=== PATIENT | female | born 1960 | race Caucasian/White ===

== ENCOUNTER 2020-07-22 14:55 | Outpatient (REF) | payer OTHER, SELFPAY ==
--- NOTE | 2020-07-22 14:20 | ENDO_PTH ---
PATIENT: Leeanne Khoury LOC: [facility] U#:[id number] AGE/SX: 60/F ROOM: RE07/22/[address]: Tabby Shahid : 1960 BED: DIS: 07/22/2020 SPEC #: [id number] RECD: 07/22/20 16:55 STATUS: ELIZABETH REQ #: [id number] KWABENA: 07/22/20 14:[address]: Tabby Shahid DEPT: Surgical Specimen RECD BY: Ellen Dozier ENTERED: 07/22/20 16:55 SP TYPE: Endo OTHR DR: None Tissues: 1 - ENDOCERVICAL BX/CURRETTE Procedures: GROSS AND MICRO LEVEL 4 Comments: [id number]
== END 2020-07-22 15:15 ==
LOC: LBN 14:55
PROVIDERS: Visit Provider Obstetrics & Gynecology Gynecology
DX: R87.612 Low grade squamous intraepithelial lesion on cytologic smear of cervix (LGSIL)
CPT/HCPCS: 88305

== ENCOUNTER 2020-08-22 00:18 | Emergency (ER) | payer OTHER, SELFPAY ==
--- NOTE | 2020-08-22 00:20 | W.ED.GENAD ---
Discharge Plan Disposition Patient Disposition: HOME Condition: Good Discharge Details Clinical Impression: Fugue Primary Care Provider: Yuliana,Local ED Provider: Dylan Torres [place] Meds and New Rx's Prescriptions: Continued omeprazole 40 mg capsule,delayed release(DR/EC) 40 mg PO DAILY RF: 0 Discharge Instructions Additional Instructions: Head CT is unremarkable. Urinalysis shows no evidence of infection. Drug screen negative. Laboratory studies normal. Unclear episode of your dreamlike state. Follow-up with primary care for reevaluation. Return to ED for recurrent symptoms, neurologic change, fever, other concerns. Referrals: [facility] [Provider Group] Medical Decision Making Patient presenting with confusional state that sounds almost fugue-like in nature. She actually describes it as being in a dream or druggee. However, she denies any drug use and denies any ingestion of substances not prepared by her. She feels completely baseline currently. She does recall being extremely upset, anxious and crying. She denies any significant psychosocial stressors other than what everyone else is going through with Covid. She is neurologically intact. Will obtain head CT and basic labs as well as drug screen. Work-up unremarkable. Drug screen negative. Head CT normal. Labs normal. Some mild dehydration otherwise nothing of significance tonight. Follow-up with primary care. Return to ED for recurrent symptoms, neurologic changes, fever. Lab Data Lab results reviewed: Yes I reviewed the patient's lab results. HPI General Mode of arrival: ambulatory. Date/Time Provider Initiated Documentation: 08/22/20 00:19. Limitations to Documentation: no limitations. Information obtained by: patient and RN notes reviewed. 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 Subsequently, called her significant other, who reports that patient did not seem to be able to finish her sentences or stay on track. Patient was upset and crying. Episode probably lasted 3 to 4 hours and resolve. She does not recall experiencing any pain, weakness, numbness, speech difficulty, visual change, gait disturbance. She denies any drug ingestion or eating or drinking anything not prepared by her. She has never had something like this happen before. She finally decided to come in for evaluation even though she now feels completely normal. Related Data Home Medications Medication Instructions Recorded Confirmed omeprazole 40 mg capsule,delayed 40 mg PO DAILY 07/21/20 08/22/20 release Allergies Allergy/AdvReac Type Severity Reaction Status Date / Time weed pollen Allergy Verified 08/22/20 00:30 dust AdvReac congestion Uncoded 08/22/20 00:30 Review of Systems Narrative: As documented in HPI otherwise negative as below. Const: no fever, chills, weakness Resp: no cough, SOB, pleuritic pain CV: no CP, diaphoresis, edema, syncope GI: no abdominal pain, nausea, vomiting, diarrhea Neuro: no headache, numbness, focal weakness PFSH Medical History Abnormal Pap smear of cervix 05/2019: LGSIL 05/2020: LGSIL. HPV negative 06/2020: Colpo ECC Surgical History Colonoscopy - IV Sedation Tonsillectomy Family History (Updated 07/22/20 @ 20:52 by Tabby Shahid MD) Mother Leukemia Father Prostate cancer Social History Smoking/Tobacco Use Status: Former Tobacco Use Smoking risk assessment performed?: Yes Alcohol Intake: current Alcohol Intake frequency: holidays/special occasions only Drug use: Never Substance use type: does not use Household members: significant other Housing: other Details: Lives and works in [facility]. In [place] 11/25 COVID Number of Children: 0 current occupation: [employer] in [employer] Do you feel safe at home: Yes Do you feel safe in your relationship?: Yes Female Reproductive History Menstrual Menopause type: natural (Age 54yo) History History 0 Para Hx # Term Pregnancies Multiple births Hx # Pregnancies Ectopic pregnancies AB induced Hx Number of Living Children AB spontaneous Exam Narrative Exam Narrative: Vitals: Afebrile with normal vitals and normal room air pulse ox. Const: WDWN female in NAD. HEENT: NC/AT. Normal facial exam. Eyes: Normal conjunctiva and sclera. PERRL and EOMI. Neck: Supple. Trachea midline. Lungs: Normal respiratory effort. Lungs are clear. Cor: RRR without murmur/gallop. Good radial pulses. GI: Soft. NT/ND. No guarding or rebound. Neuro: A+O x 3. Normal speech, mentation, gait. Cranial nerves II - XII grossly intact. No gross motor or sensory deficit. Normal neuro exam currently. Ext: No C/C/E. Skin: Warm and dry without rash.
[2020-08-22 00:23] VITALS: BP 117/80; PULSE 65; RESP 13; TEMP 36.8; O2SAT 96
[2020-08-22 00:33] VITALS: RESP 16
[2020-08-22 01:01] LABS: Abs Immature Grans 0.01 10^3/uL (0.0-0.06); Absolute Basophil Count 0.04 10^3/uL (0.0-0.2); Absolute Lymphocyte Count 2.19 10^3/uL (1.2-3.4); Absolute Monocyte Count 0.58 10^3/uL (0.1-0.8); Basophils % 0.7; Bilirubin Negative (Negative); Blood Negative (Negative); Clarity Clear (Clear); Eosinophils % 1.7; Glucose Negative (Negative); HCT 41.1 % (36.0-46.0); HGB 13.5 g/dL (11.2-15.7); Immature Grans % 0.2; Ketones Negative (Negative); Leukocyte Esterase Negative (Negative); Lymphocytes % 36.4; MCH 30.3 pg (27.0-33.0); MCHC 32.8 % (32.0-36.0); MCV 92.4 fL (80-95); MPV 10.6 fL (8.0-11.0); Monocytes % 9.6; Neutrophils % 51.4; Nitrite Negative (Negative); Nucleated RBC 0 %; Platelet Count 291 10^3/uL (130-400); RBC 4.45 10^6/uL (3.93-5.22); RDW 11.8 % (11.7-14.6); RDW-SD 39.7 fL; Specific Gravity >= 1.030 (1.005-1.025); Urobilinogen 0.2 EU/dL (Up TO 0.2); WBC 6.02 10^3/uL (4.4-10.8)
[2020-08-22 01:13] LABS: *AMPHETAMINES SCREEN URINE Negative (Negative); *BARBITURATES SCREEN URINE Negative (Negative); *BENZODIAZEPINES SCREEN URINE Negative (Negative); Cannabinoids THC Negative (Negative); Cocaine Screen,Urine Negative (Negative); METHADONE URINE SCREEN Negative (Negative); OPIATES URINE SCREEN Negative (Negative); Tricyclic Antidepressants Negative (Negative)
--- NOTE | 2020-08-22 01:20 | DI.CT_ITS ---
EXAM: CT HEAD WO CLINICAL HISTORY: altered mental status. TECHNIQUE: Imaging Protocol: Axial computed tomography images with coronal and sagittal reformatted images were created and reviewed COMPARISON: No exams were available for comparison FINDINGS: The ventricular system is normal in appearance. No evidence of acute intracranial hemorrhage, mass effect, or midline shift. The orbital structures are unremarkable. The temporal bone structures appear intact. Calvarium: Normal. Visualized Paranasal sinuses/Mastoids: Clear. IMPRESSION: Normal cranial CT. RADIATION DOSE DELIVERED: 648.16mGy.cm Total DLP 648.16mGy.cm Total DLP DATA REPOSITORY: All CT scans at this facility are submitted to the National Radiology Data Registry (NRDR) Dose Index Registry (DIR) with the [employer] (ACR). RADIATION OPTIMIZATION: All CT scans at this facility use at least one of these dose optimization te chniques: automated exposure control; mA and/or kV adjustment per patient size (includes targeted exa ms where dose is matched to clinical indication); or iterative reconstruction.
[2020-08-22 01:26] LABS: ALT 18 U/L (14-59); AST 12 U/L (15-37); Albumin 3.7 g/dL (3.4-5.0); Alkaline Phosphatase 70 U/L (46-116); Anion Gap 6.8 mmol/L (3-11); BUN 31 mg/dL (7-18); Bilirubin, Total 0.3 mg/dL (0.2-1.0); CO2 30.2 mmol/L (21.0-32.0); Calcium 8.9 mg/dL (8.5-10.1); Chloride 107 mmol/L (98-107); Glucose 100 mg/dL (74-106); Potassium 3.4 mmol/L (3.5-5.1); Sodium 144 mmol/L (136-145); TSH (W/Ref FT4) 0.94 uIU/mL (0.36-3.74); Total Protein 7.1 g/dL (6.4-8.2)
--- NOTE | 2020-08-22 01:29 | DI.VRAD_ITS ---
PROCEDURE INFORMATION: Exam: CT Head Without Contrast Exam date and time: 08/22/2020 1:19 AM Age: 60 years old Clinical indication: Altered mental status/memory loss; Confusion or disorientation TECHNIQUE: Imaging protocol: Computed tomography of the head without contrast. Radiation optimization: All CT scans at this facility use at least one of these dose optimization techniques: automated exposure control; mA and/or kV adjustment per patient size (includes targeted exams where dose is matched to clinical indication); or iterative reconstruction. COMPARISON: No relevant prior studies available. FINDINGS: Brain: Cerebral sulci show bilateral symmetry with no supratentorial mass or mass effect detected. Brainstem and cerebellum are normal in appearance. There is no evidence of acute infarct or intracranial hemorrhage. Cerebral ventricles: No midline shift or hydrocephalus. Bones/joints: The bony calvarium and skull base are intact and no fractures or other acute osseous lesions are detected. Incomplete fusion of the posterior arch of C1 is a common congenital variant. Paranasal sinuses: Paranasal sinuses are clear throughout at the levels imaged. No air-fluid levels. Mastoid air cells: Visualized mastoid air cells are normally pneumatized and well aerated. Soft tissues: Unremarkable. IMPRESSION: Unremarkable examination with no evidence of acute infarct, recent hemorrhage or hydrocephalus. No acute intracranial process is detected. Dictated and Authenticated by: Garry Kerr MD. Ordering:RAFAEL Richardson MD
== END 2020-08-22 01:49 | disposition home or self-care (01) ==
PROVIDERS: Emergency Provider Emergency Medicine
DX: R68.89 Other general symptoms and signs (principal)
CPT/HCPCS: 36415; 80053; 80307; 99284; 70450; 81003; 84443; 85025; 99282

== ENCOUNTER → 2022-03-31 02:07 | Outpatient (CLI) | payer OTHER, SELFPAY ==
--- NOTE | 2022-03-31 | DI.US_ITS ---
Exam(s) MG MAMMO SCREEN CALL BACK UNI US BREAST LT COMPLETE EXAM: MG MAMMO SCREEN CALL BACK UNI LEFT AND COMPLETE LEFT BREAST ULTRASOUND CLINICAL HISTORY: F/U ABNL MAMMO, INCONCLUSIVE MAMMO, R92.2, LUMP LT BREAST, N63.20. TECHNIQUE: Unilateral spot mammographic images obtained with 3D tomosynthesisand utilizing computer aided detection (CAD). . Complete LEFT breast Ultrasound was also performed, including all 4 quadrants, the retroareolar regio n, and the ipsilateral axilla. COMPARISON: Prior outside mammograms were reviewed. This additional imaging was performed due to findings described on a recent screening mammogram of 03/11/2022 performed in [facility] FINDINGS: DIAGNOSTIC LEFT BREAST MAMMOGRAM:The well-defined nodule persists on spot compression. Proceeded wit h ultrasound to determine if it is solid or cystic. COMPLETE LEFT BREAST ULTRASOUND: All 4 quadrants were scanned as well as the retroareolar lesion and the left axilla At the 3 o'clock position there is an 11 by 6 millimeters cyst corresponding to the finding on the ma mmogram. This is a simple cyst with no mural nodularity nor evidence of hemorrhagic content. Increa sed through transmission. No worrisome decreased through transmission. There are no other focal ultrasound findings in all 4 quadrants. Scanning of the left axilla is negative for significant adenopathy. IMPRESSION: 1. There is a an 11 x 6 millimeter cyst at the relatively central 3 o'clock position of the left ara st, this correspond to the finding on the mammogram. There is no evidence of malignancy. 2. Appropriate follow-up is keep this patient yearly mammogram schedule, with earlier imaging if a se lf detected breast change is noted. Recommend repeat ultrasound examination at the time for next yea rly mammogram, earlier if clinically indicated. The patient was informed of these findings and recommendations by myself today. BI-RADS Category 2 - Benign Findings Breast Density - Category C - Heterogeneously dense Breast density Category C or D implies that the patient has dense breast tissue. Dense breast tissue can make it harder to find cancer on a mammogram. Dense breast tissue is also associated with an incr eased risk of breast cancer. This information about the result of the mammogram report was provided to the patient to raise their awareness. Use this report when you speak with the patient about their risks for breast cancer, which includes their family history. At that time, you may recommend additional screening tests (Ultrasoun d or MRI) as these tests may add significant information. A negative radiographic report should not delay biopsy if a dominant or clinically suspicious mass is present. Up to ten percent of cancers are not identified on mammography. A negative report may reinforce clinical impression. Adenosis and dense breasts may obscure an underlying neoplasm. False positive reports average 6 to 10%. Patient will receive a letter notifying them of these results.
== END ==
DX: Z12.31 Encounter for screening mammogram for malignant neoplasm of breast (principal); R92.8 Other abnormal and inconclusive findings on diagnostic imaging of breast; N60.02 Solitary cyst of left breast
CPT/HCPCS: 76642; 77063; 77067

== ENCOUNTER 2025-05-28 14:25 | Emergency (ER) | payer OTHER, SELFPAY ==
[2025-05-28 14:38] VITALS: BP 116/82; PULSE 79; RESP 18; TEMP 36.6; O2SAT 94
--- NOTE | 2025-05-28 16:35 | DI.RAD_ITS ---
Exam(s) XR HAND LT COMPLETE EXAM: XR HAND LT COMPLETE CLINICAL HISTORY: Index finger laceration, R/O FB. TECHNIQUE: 2D digital imaging was performed. COMPARISON: No exams were available for comparison FINDINGS: 3 views No fractures evident. No osseous lesions nor erosions. No radiopaque foreign bodies. There is no gas in the soft tissues. IMPRESSION: No significant radiographic findings. DATA REPOSITORY: RADIATION DOSE DELIVERED:
[2025-05-28 17:47] VITALS: BP 114/90; PULSE 60; RESP 14; O2SAT 98
--- NOTE | 2025-05-28 17:51 | W.ED.GENAD ---
Discharge Plan Disposition Patient Disposition: Home Condition: Stable Discharge Details Clinical Impression: Laceration of left index finger Primary Care Provider: Yuliana,Local ED Provider: Faith Mar Home Meds and New Rx's Prescriptions: New cephalexin 500 mg tablet 500 mg PO BID 7 Days Qty: 14 0RF Rx Instructions: Take 1 tablet by mouth twice daily for the next 7 days No Action omeprazole 40 mg capsule,delayed release(DR/EC) 40 mg PO DAILY mesalamine 1.2 gram tablet,delayed release (DR/EC) 1.2 g PO DAILY Patient Comments: TAKE FOUR TABLETS BY MOUTH EVERY DAY budesonide 9 mg tablet,delayed and ext.release 9 mg PO DAILY Patient Comments: TAKE ONE TABLET BY MOUTH EVERY DAY IN THE MORNING escitalopram oxalate 10 mg tablet 10 mg PO DAILY Patient Comments: TAKE ONE TABLET BY MOUTH EVERY DAY Discharge Instructions Instructions: Laceration Repair With Stitches ED Additional Instructions: The laceration was repaired with 5 simple interrupted sutures today. Please have these removed in 7 to 10 days. You may go to urgent care or return here to the emergency department what ever is more convenient for you. Leave alone for the first 12 to 24 hours after 24 hours you may wash under running soap and water. Allow to air dry at least 2 hours a day. Keep clean and dry. Keep it covered when out and about. Try not to fully flex or bend your finger. You may ice and elevate and take Tylenol after the numbing medicine wears off in approximately 3 to 6 hours. Return to the ER or be seen immediately for any signs of infection including increased red streaks, swelling drainage or increased pain. Follow up with primary care provider in 3-5 days. Return to ED sooner if any worsening or concerns. Please take Tylenol with food every 4-6 hours as needed for pain and swelling. Thank you for allowing us to care for you today. HPI General Mode of arrival: ambulatory. Date/Time Provider Initiated Documentation: 05/28/25 15:01. Limitations to Documentation: no limitations. Information obtained by: patient, RN notes reviewed and old records reviewed. HPI Narrative: At approximately 1:30 PM this afternoon prior to arrival patient was using a organ grinder and her finger slipped causing a laceration to her left index finger. Has full range of motion, distal sensation intact. Bleeding is controlled upon initial presentation. Patient is left-hand dominant, unsure when last tetanus vaccination was. Related Data Home Medications ?Medication ?Instructions ?Recorded ?Confirmed omeprazole 40 mg capsule,delayed 40 mg PO DAILY 07/21/20 05/28/25 release budesonide 9 mg tablet,delayed and 9 mg PO DAILY 05/28/25 05/28/25 extended release cephalexin 500 mg tablet 500 mg PO BID Laceration 7 days 05/28/25 #14 tabs escitalopram oxalate 10 mg tablet 10 mg PO DAILY 05/28/25 05/28/25 mesalamine 1.2 gram tablet,delayed 1.2 g PO DAILY 05/28/25 05/28/25 release Previous Rx's ?Medication ?Instructions ?Recorded cephalexin 500 mg tablet 500 mg PO BID Laceration 7 days 05/28/25 #14 tabs Allergies Allergy/AdvReac Type Severity Reaction Status Date / Time weed pollen AdvReac Intermediate Other (See Verified 05/28/25 14:42 Comment) dust AdvReac congestion Uncoded 05/28/25 14:42 General Stated Complaint: Laceration TRINH: 4 Review of Systems Musculoskeletal Musculoskeletal: Reports as per HPI Integumentary/Breasts Skin/Breast: Reports wounds (Laceration left index finger) Exam Extrem Left upper extremity: hand Details: laceration 2nd digit ulnar aspect mid Details: stellate, flap, contaminated, involving subcutaneous tissue, with motor nerve function intact and with sensation intact; not actively bleeding and no pulsatile bleeding Hand/finger images:  1. Stellate type contaminated laceration noted to the ulnar aspect of her left index finger. Bleeding controlled. Course Vital Signs Vital signs: Vital Signs Temperature 36.6 C 05/28/25 14:38 Pulse 79 05/28/25 14:38 Respiratory Rate 18 05/28/25 14:38 Blood Pressure 116/82 05/28/25 14:38 Pulse Oximetry 94 05/28/25 14:38 Temperature 36.6 C 05/28/25 14:38 Pulse 79 05/28/25 14:38 Respiratory Rate 18 05/28/25 14:38 Blood Pressure 116/82 05/28/25 14:38 Pulse Oximetry 94 05/28/25 14:38 Oxygen Delivery Method Room Air 05/28/25 14:38 Oxygen Flow Rate 0 05/28/25 14:38 Procedure Laceration Laceration 1: Date of Procedure: 05/28/25 Time of procedure: 19:06 Provider that performed the procedure: Faith Mar Standard Time Out Performed: Yes Patient Consented: Verbally Site: hand Side (If applicable): left Description: stellate and contaminated Depth: simple, single layer Local anesthetic: Lidocaine 2% and Bupivicaine 0.5% Pre-repair:: wound explored, irrigated extensively and deep structures intact Skin layer closed with: nylon Suture size: 4-0 Number of sutures:: 5 Technique: simple, interrupted Complications: None Procedure Description/Note: Laceration cleaned with sterile normal saline and chlorhexidine, patient tolerated well, number five 4.0 Ethilon sutures simple interrupted placed, wound well-approximated. Will place patient on antibiotics for laceration on the MCP joint Nerve Block 1st Nerve Block: Date of Procedure: 05/28/25 Time of procedure: 18:45 Provider that performed the procedure: Faith Mar Indication: Anesthesia, Local pain control and Procedural Standard Time Out Performed: Yes Patient Consented: Verbally Local Anesthetic: Lidocaine 2% and Bupivicaine 0.5% Amount of anethetic used(mL): 4 Sterility: Non Sterile Laterality: Left Nerve Blocks: digital (4 sided ring block) Ultrasound: Not used. Paresthesia: Left (Index finger) Paresthesia Duration: Persistent Post Procedure Pain Score (0-10): 0 Procedure Tolerated: No Complications and Patient tolerated well Procedure Outcome: Successful Medical Decision Making At approximately 1:30 PM this afternoon prior to arrival patient was using a organ grinder and her finger slipped causing a laceration to her left index finger. Has full range of motion, distal sensation intact. Bleeding is controlled upon initial presentation. Patient is left-hand dominant, unsure when last tetanus vaccination was. Imaging ordered to rule out foreign body or fracture, Tdap booster ordered. Patient has a star-shaped laceration approximately 1-1/2 cm to the medial aspect of her left index finger. Bleeding controlled. Intact range of motion and distal sensation intact. See procedure note. Digital block performed, anesthesia achieved. Discussed home care with patient strict return instructions and follow-up tablets per status post instructed to have sutures removed in approximately 7 to 10 days. Patient placed on cephalexin as the laceration is over her MCP joint. This text was generated using [employer] system, please disregard any oddities of phrase or misspellings. Imaging Data Radiologic Study: Imaging: X-Ray Radiologist's impression: CLINICAL HISTORY: Index finger laceration, R/O FB. TECHNIQUE: 2D digital imaging was performed. COMPARISON: No exams were available for comparison FINDINGS: 3 views No fractures evident. No osseous lesions nor erosions. No radiopaque foreign bodies. There is no gas in the soft tissues. IMPRESSION: No significant radiographic findings. PFSH All Active Problems (Updated 05/28/25 @ 19:08 by Faith Mar NP) Laceration of left index finger (Acute) History of colposcopy (Acute) 07/22/2020 Abnormal Pap smear of cervix (Acute) 05/2019: LGSIL 05/2020: LGSIL. HPV negative 06/2020: Colpo ECC Ulcerative colitis (Chronic) Medical History Abnormal Pap smear of cervix 05/2019: LGSIL 05/2020: LGSIL. HPV negative 06/2020: Colpo ECC Surgical History Colonoscopy - IV Sedation Tonsillectomy Family History (Updated 07/22/20 @ 20:52 by Tabby Shahid MD) Mother Leukemia Father Prostate cancer Social History Smoking/Tobacco Use Status: Former Tobacco Use Smoking risk assessment performed?: Yes Alcohol Intake: current Alcohol Intake frequency: holidays/special occasions only Drug use: Never Substance use type: does not use Household members: significant other Housing: other Details: Lives and works in [facility]. In [place] 11/25 COVID Number of Children: 0 current occupation: [employer] in [employer] Do you feel safe at home: Yes Do you feel safe in your relationship?: Yes Female Reproductive History Menstrual Menopause type: natural (Age 54yo) History History 0 Para Hx # Term Pregnancies Multiple births Hx # Pregnancies Ectopic pregnancies AB induced Hx Number of Living Children AB spontaneous
[2025-05-28] MEDS: Diph,Pertuss(Acell),Tet Vac/Pf 0.5 ML SYR IM (18:01)
[2025-05-28] MEDS: Bupivacaine 0.5% Pres-Free 30 ML VIAL IJ (18:02)
[2025-05-28] MEDS: Lidocaine 2% Multi-Dose 20 ML VIAL IJ (18:03)
[2025-05-28] MEDS: Bacitracin 1 PACKET TP (19:26)
[2025-05-28] MEDS: Cephalexin 500 MG CAP PO (19:26)
[2025-05-28 19:55] VITALS: BP 120/81; PULSE 55; RESP 16; O2SAT 96
== END 2025-05-28 19:56 | disposition home or self-care (01) ==
PROVIDERS: Emergency Provider Registered Nurse Emergency
DX: S61.211A Laceration without foreign body of left index finger without damage to nail, initial encounter (principal); Z23 Encounter for immunization; W29.8XXA Contact with other powered hand tools and household machinery, initial encounter; Y93.89 Activity, other specified
CPT/HCPCS: 12001; 90471; 90715; 99283; 73130; J0665; J2003